=== PATIENT | female | born 1960 | race Caucasian/White ===

== ENCOUNTER → 2016-10-21 | Outpatient (CLI) | payer MEDICARE | LOC: NM 13:00 | DX: R06.00 Dyspnea, unspecified (principal); R07.9 Chest pain, unspecified; I45.10 Unspecified right bundle-branch block; Z88.6 Allergy status to analgesic agent; Z88.2 Allergy status to sulfonamides; Z88.1 Allergy status to other antibiotic agents | CPT/HCPCS: 78452; 93017; A9502; J2785 ==

== ENCOUNTER 2016-11-06 01:26 | Emergency (ER) | payer MEDICARE ==
[2016-11-06 02:38] LABS: HEMOGLOBIN 12.7 gm/dl (12.3-15.3); RED BLOOD COUNT 4.64 M/UL (4.00-5.10)
[2016-11-06 02:40] LABS: BUN/CREATININE RATIO 23 (0-10)
== END 2016-11-06 08:12 | disposition home or self-care (01) ==
LOC: ER1 01:26
PROVIDERS: Specialist/Technologist Athletic Trainer
DX: R07.2 Precordial pain (principal); R79.1 Abnormal coagulation profile; R79.89 Other specified abnormal findings of blood chemistry; I10 Essential (primary) hypertension; Z88.2 Allergy status to sulfonamides; Z88.5 Allergy status to narcotic agent; Z79.01 Long term (current) use of anticoagulants; Z79.899 Other long term (current) drug therapy
CPT/HCPCS: 36415; 36600; 71250; 80053; 82550; 82553; 82803; 83874; 84484; 85025; 85610; 93005; 99285

== ENCOUNTER → 2016-12-02 | Outpatient (CLI) | payer MEDICARE | LOC: LAB 16:39 | DX: K74.69 Other cirrhosis of liver (principal); C50.919 Malignant neoplasm of unspecified site of unspecified female breast; B37.2 Candidiasis of skin and nail; E03.9 Hypothyroidism, unspecified; F32.89 Other specified depressive episodes; G60.3 Idiopathic progressive neuropathy; I10 Essential (primary) hypertension; I27.82 Chronic pulmonary embolism; I82.592 Chronic embolism and thrombosis of other specified deep vein of left lower extremity; M51.36 Other intervertebral disc degeneration, lumbar region; R09.02 Hypoxemia; R06.02 Shortness of breath; R21 Rash and other nonspecific skin eruption; R23.8 Other skin changes; L08.89 Other specified local infections of the skin and subcutaneous tissue; L80 Vitiligo | CPT/HCPCS: 36415; 80074 ==

== ENCOUNTER → 2017-01-29 | Outpatient (CLI) | payer MEDICARE | LOC: LAB 13:34 | DX: K74.60 Unspecified cirrhosis of liver (principal); R13.14 Dysphagia, pharyngoesophageal phase; I82.409 Acute embolism and thrombosis of unspecified deep veins of unspecified lower extremity | CPT/HCPCS: 36415; 82103; 82728; 83540; 83550; 86039; 86255 ==

== ENCOUNTER → 2020-11-20 | Outpatient (CLI) | payer MEDICARE ==
[~2020-11-20] MED LIST: NORCO 7.5-3251 EACH PO; NORFLEX 100 MG100 MG PO; ZANAFLEX4 MG PO
== END ==
LOC: MAMO 11:00
DX: Z12.31 Encounter for screening mammogram for malignant neoplasm of breast (principal); M81.0 Age-related osteoporosis without current pathological fracture; Z90.12 Acquired absence of left breast and nipple
CPT/HCPCS: 77063; 77067; 77080

== ENCOUNTER → 2021-06-04 | Outpatient (CLI) | payer MEDICARE | LOC: KOH-I 09:49 | DX: R10.815 Periumbilic abdominal tenderness (principal); R10.813 Right lower quadrant abdominal tenderness; K74.60 Unspecified cirrhosis of liver; K82.8 Other specified diseases of gallbladder; K57.90 Diverticulosis of intestine, part unspecified, without perforation or abscess without bleeding | CPT/HCPCS: 74176 ==

== ENCOUNTER → 2021-12-22 | Outpatient (CLI) | payer MEDICARE | LOC: KOH-I 12-08 09:00 | DX: R10.811 Right upper quadrant abdominal tenderness (principal) | CPT/HCPCS: 76705 ==

== ENCOUNTER → 2022-02-10 | Outpatient (CLI) | payer MEDICARE ==
[2022-02-10 10:58] LABS: HEMOGLOBIN 13.3 gm/dl (12.3-15.3); RED BLOOD COUNT 4.34 M/UL (4.00-5.10); WHITE BLOOD COUNT 6.5 K/UL (4.5-11.0)
[2022-02-11 09:15] LABS: CREATININE, URINE 295.5 mg/dL (Not Estab.)
[2022-02-12 11:16] LABS: CHOLESTEROL, TOTAL 144 mg/dL (100-199); HDL SIZE 9.4 nm (>=9.2); HDL-C 45 mg/dL (>39); HDL-P (TOTAL) 29.4 umol/L (>=30.5); LARGE HDL-P 5.7 umol/L (>=4.8); LARGE VLDL-P 3.1 nmol/L (<=2.7); LDL SIZE 21.5 nm (>20.5); LDL SIZE 21.5 nm (>=20.8); LDL-C 79 mg/dL (0-99); LDL-P 701 nmol/L (<1000); LP-IR SCORE 34 (<=45); SMALL LDL-P 298 nmol/L (<=527); TRIGLYCERIDES 107 mg/dL (0-149); VLDL SIZE 43.9 nm (<=46.6)
== END ==
LOC: MAMO 10:00
PROVIDERS: Emergency Medicine
DX: Z12.31 Encounter for screening mammogram for malignant neoplasm of breast (principal); C50.919 Malignant neoplasm of unspecified site of unspecified female breast; R10.815 Periumbilic abdominal tenderness; R10.813 Right lower quadrant abdominal tenderness
CPT/HCPCS: 36415; 77063; 77067; 80053; 80061; 82043; 82570; 83704; 84443; 84550; 85025

== ENCOUNTER → 2022-05-20 | Outpatient (CLI) | payer MEDICARE | LOC: RAD 18:06 | DX: M25.551 Pain in right hip (principal); M54.59 Other low back pain; M47.816 Spondylosis without myelopathy or radiculopathy, lumbar region | CPT/HCPCS: 72110; 73502 ==